=== PATIENT | female | born 1975 | race Caucasian/White ===

== ENCOUNTER 2016-07-27 08:19 | Emergency (ER) | payer OTHER ==
[2016-07-27 08:31] VITALS: BP 119/72; PULSE 100; RESP 20; TEMP 98.6; O2SAT 99
--- NOTE | 2016-07-27 08:59 | UCPHY ---
H & P Time Seen by Provider: 07/27/16 08:32 Patient Type: Established HPI/ROS: This patient has had intermittent sinus symptoms over the past 6 weeks and now has right frontal sinus pain that is 6/10 intensity worsens when she bends forward. She also has some moderate right ear pressure with occasional sharp pains. The sinus pressure and ear pain came on over the past few days. She also had a low-grade fever of 100 this morning which is uncommon for her. Finally, she reports a mild sore throat. ROS: No high fevers or chills. No other constitutional symptoms. HEENT: She has slight muffled hearing on the right. No difficulty swallowing or talking. Pulmonary: Minimal cough. No wheezing shortness of breath or pleuritic pain. Cardiovascular: No leg swelling. 7 point ROS is otherwise negative Past Medical/Surgical History: Rare sinusitis in the past Smoking Status: Former smoker Physical Exam: Physical Exam Vital signs are normal. General: No acute distress HEENT: Nose: Swollen right nasal mucosa. Yellow discharge. She has sinus tenderness to percussion at the right frontal sinus. Ears: Right external canals clear right TM has a white effusion. No erythema. Left external canal and TM are clear. oropharynx: No erythema or exudates. Eyes: Pupils equal and react to light. Extraocular motions are intact. Neck: Supple Lungs: Clear to auscultation bilaterally. No respiratory distress. Cardiac: Regular rate and rhythm with no murmur gallop or rub Skin: No rash or pallor. Neuro: Alert and oriented x3 with no sensorimotor deficits. Initial differential diagnosis: Sinusitis-bacterial versus viral, serous otitis Constitutional: Initial Vital Signs Temperature (C) 37 C 07/27/16 08:29 Heart Rate 100 07/27/16 08:29 Respiratory Rate 20 07/27/16 08:29 Blood Pressure 119/72 07/27/16 08:29 O2 Sat (%) 99 07/27/16 08:29 O2 Delivery Mode Room Air Allergies/Adverse Reactions: No Known Allergies Allergy (Verified 07/27/16 08:28) Home Medications: Medication Instructions Recorded Amitriptyline HCl [Elavil] 04/27/14 Claritin 01/24/16 Azithromycin [Zithromax] 250 mg PO DAILY #6 tab 07/27/16 MDM/Departure - Depart Disposition: Home, Routine, Self-Care Clinical Impression: Acute sinusitis Qualifiers: Sinusitis location: frontal Recurrence: non-recurrent Qualified Code(s): J01.10 - Acute frontal sinusitis, unspecified Serous otitis media Qualifiers: Laterality: right Chronicity: acute Recurrence: not specified as recurrent Qualified Code(s): H65.01 - Acute serous otitis media, right ear Condition: Good Instructions: Sinusitis (ED) Additional Instructions: Dx: sinusitis 2. Serous otitis Plan: Humidifier Zithromax antibiotic Continue your Flonase steroid nasal spray for least the next 10-12 days Afrin [id number] for the next 2 days in addition if needed. Humidifier Ibuprofen or Aleve Your symptoms should gradually improve over the next 3-10 days. If you're not improving, consider follow-up with Dr. Canales-Ear Nose Throat specialist. Prescriptions: Azithromycin [Zithromax] 250 mg PO DAILY #6 tab Referrals: Odalis Martinez [Primary Care Provider] - As per Instructions Ney Canales MD [Medical Doctor] - As per Instructions - PQRS PQRS Measurement: NA
== END 2016-07-27 09:07 | disposition home or self-care (01) ==
LOC: CED 08:19
DX: J01.10 Acute frontal sinusitis, unspecified (principal); H65.01 Acute serous otitis media, right ear; Z87.891 Personal history of nicotine dependence
CPT/HCPCS: 99214-PO; G0463-PO